=== PATIENT | female | born 1965 | race African-American/Black ===

== ENCOUNTER 2019-03-21 20:18 | Inpatient (IN) | payer MEDICARE, MEDICAID | END 2019-05-07 11:35 | disposition left against medical advice (07) | LOC: CENTRAL 03-24 02:04 → WEST WING 04-18 18:49 → OVERFLOW 20:19 → WEST WING 04-16 14:13 → ER 20:18 → CENTRAL 03-22 16:49 | DX: G93.40 Encephalopathy, unspecified (principal); E87.2 Acidosis; F06.1 Catatonic disorder due to known physiological condition; E87.6 Hypokalemia; R25.1 Tremor, unspecified; F20.9 Schizophrenia, unspecified; F31.9 Bipolar disorder, unspecified ==